=== PATIENT | female | born 1995 | race Two or more races ===

== ENCOUNTER 2024-11-09 12:51 | Emergency (ER) | payer MEDICAID ==
[~2024-11-09] VITALS: Ht 162.6 cm; Wt 60.8 kg
[2024-11-09 15:04] LABS: CALCIUM, SERUM 8.6 mg/dL (8.5-10.1); CREATININE 0.7 mg/dL (0.6-1.3); PLATELET COUNT (AUTO) 337 K/uL (150-450); RED BLOOD CELL COUNT(AUTO) 4.28 MIL/uL (4.0-5.2); RED CELL DISTRIBUTION WIDTH 15.0 % (11.5-15.0); SODIUM SERUM 139 mmol/L (136-145); UREA NITROGEN, BLOOD 11 mg/dL (7-18); WHITE BLOOD COUNT (AUTO) 5.7 K/uL (4.3-11.0)
[2024-11-09 15:10] LABS: ASPARTATE AMINOTRANSFERASE 15 U/L (15-37); TOTAL PROTEIN, SERUM 7.2 g/dL (6.4-8.2)
[2024-11-09 15:35] LABS: BLOOD, URINE Large Ery/uL (NEGATIVE); LEUKOCYTE ESTERASE ,URINE Negative (NEGATIVE); UGLUCOSE Negative (NEGATIVE)
[2024-11-09 15:39] LABS: NITRITE, URINE NEGATIVE (NEGATIVE)
[2024-11-09 15:40] LABS: ADD URINE CULTURE NO; APPEARANCE,URINE SLIGHTLY CLOUDY (CLEAR); SQUAMOUS EPITHELIAL CELL,UR Few /HPF (None Seen)
[2024-11-09 15:41] LABS: URINE AMORPHOUS PHOSPHATES Few /HPF (None Seen)
[2024-11-09 15:43] LABS: AMPHETAMINE, URINE NEGATIVE (NEGATIVE); BENZODIAZEPINE, URINE NEGATIVE (NEGATIVE); CANNABINOID, URINE NEGATIVE (NEGATIVE); COCCAINE, URINE NEGATIVE (NEGATIVE); OPIATE, URINE NEGATIVE (NEGATIVE)
[2024-11-09 15:54] LABS: BARBITURATE, URINE NEGATIVE (NEGATIVE)
[2024-11-10 12:45] LABS: PREGNANCY TEST URINE QUAL NEGATIVE (NEGATIVE)
[2024-11-10 16:26] VITALS: BP 112/81; TEMP 98; O2SAT 99
== END 2024-11-10 16:27 ==
LOC: ER 12:59
DX: F29 Unspecified psychosis not due to a substance or known physiological condition (principal); F19.230 Other psychoactive substance dependence with withdrawal, uncomplicated; R45.89 Other symptoms and signs involving emotional state; Z73.6 Limitation of activities due to disability; Z60.2 Problems related to living alone; Z20.822 Contact with and (suspected) exposure to COVID-19; Z59.00 Homelessness unspecified
CPT/HCPCS: 36415; 80048-TC; 80076-TC; 81001; 84703-TC; 85025-TC